=== PATIENT | female | born 2000 | race African-American/Black ===

== ENCOUNTER 2021-07-27 18:29 | Emergency (ER) | payer SELFPAY | END 2021-07-27 21:55 | disposition home or self-care (01) | LOC: ERS 18:29 | DX: B34.9 Viral infection, unspecified (principal); J45.909 Unspecified asthma, uncomplicated | CPT/HCPCS: 70360 ==

== ENCOUNTER 2021-11-15 13:58 | Emergency (ER) | payer SELFPAY ==
[2021-11-15] MEDS ORDERED: diphenhydrAMINE 25 MG CAP ONE (14:39)
[2021-11-15] MEDS ORDERED: Ketorolac Tromethamine 30 MG/ML VIAL ONE (14:39)
== END 2021-11-15 16:43 | disposition home or self-care (01) ==
LOC: ERS 13:58
DX: R51.9 Headache, unspecified (principal); J45.909 Unspecified asthma, uncomplicated; K21.9 Gastro-esophageal reflux disease without esophagitis
CPT/HCPCS: 99283; J1885

== ENCOUNTER 2022-03-27 13:25 | Emergency (ER) | payer SELFPAY | END 2022-03-27 14:12 | disposition home or self-care (01) | LOC: ERS 13:25 | DX: S80.11XA Contusion of right lower leg, initial encounter (principal); J11.1 Influenza due to unidentified influenza virus with other respiratory manifestations; K21.9 Gastro-esophageal reflux disease without esophagitis; J45.909 Unspecified asthma, uncomplicated | CPT/HCPCS: 93005 ==

== ENCOUNTER 2022-05-29 11:46 | Emergency (ER) | payer SELFPAY ==
[2022-05-29 12:36] LABS: Hemoglobin 13.4 g/dL (12.0-16.0); Mean Corpuscular HGB CONC 34.3 g/dL (32.0-36.0); Mean Corpuscular Hemoglobin 33.4 pg (27.0-31.0); Mean Corpuscular Volume 97.3 fL (78.0-98.0); Mean Platelet Volume 8.4 fL (7.4-10.4); Platelet Count 369 thou/uL (130-400); RBC Distribution Width 12.8 % (11.5-14.5); White Blood Cell (WBC) Count 4.7 thou/uL (4.8-10.8)
[2022-05-29 12:51] LABS: ALT (SGPT) 59 U/L (8-55); AST (SGOT) 41 U/L (5-34); Albumin 4.3 g/dL (3.5-5.0); Alkaline Phosphatase 61 U/L (40-110); Anion Gap 16 mmol/L (10-20); BUN (Urea Nitrogen) 12 mg/dL (7.0-18.7); Calc. Creatinine Clearance 0 mL/min (70-130); Calcium 9.4 mg/dL (7.8-10.44); Carbon Dioxide 21 mmol/L (22-29); Chloride 105 mmol/L (98-107); Estimated GFR 129; Globulin 3.3 g/dL (2.4-3.5); Glucose 90 mg/dL (70-105); Lipase 19 U/L (8-78); Potassium 3.9 mmol/L (3.5-5.1); Protein, Total 7.6 g/dL (6.0-8.3); Sodium 138 mmol/L (136-145)
[2022-05-29 13:05] LABS: Lymphocytes 58 % (21-51); MDiff Complete? YES; Monocytes 6 % (0-10); Neutrophil 33 % (42-75); Platelet Morphology Comment Appears Adequate; RBC Morphology Normal; Reactive Lymphocytes 3 % (0-10)
[2022-05-29 13:16] LABS: BHCG - Serum Negative (NEGATIVE); Pregs Control Background? CLEAR/WHITE (CLR/WHITE); Pregs Control Bar Appear? YES (CONTROL BAR)
[2022-05-29] MEDS ORDERED: Iopamidol-370 76% 500 ML 1 ML ONE (14:03)
[2022-05-29] MEDS ORDERED: Mag-Al 1200 mg/1200 mg/30 ML UDCUP ONE (15:38)
[2022-05-29] MEDS ORDERED: Lidocaine Viscous Sol 2% 15 ml UD Cup ONE (15:38)
== END 2022-05-29 16:20 | disposition home or self-care (01) ==
LOC: ERS 11:46
DX: R07.9 Chest pain, unspecified (principal); R06.02 Shortness of breath; K21.9 Gastro-esophageal reflux disease without esophagitis
CPT/HCPCS: 36415; 71045; 71275; 74174; 80053; 83690; 83880; 84484; 84703; 85025; 93005; 94760; Q9967